=== PATIENT | female | born 1955 | race Caucasian/White ===

== ENCOUNTER 2022-01-23 12:47 | Emergency (ER) | payer BC, SELFPAY ==
--- NOTE | ~2022-01-23 | XR_ITS ---
XR knee RT 3V 01/23/2022 13:22 Indication: Right knee pain Procedure: 3 views right knee Comparison: No prior studies for comparison. Findings: Mild tricompartment osteoarthritis. No fracture, subluxation or dislocation. No significant joint effusion. No foreign bodies. Impression: 1: No acute fracture. Reviewed, dictated and finalized at location B. Impression: 1: No acute fracture.
[2022-01-23 12:54] VITALS: BP 122/93; PULSE 78; RESP 18; TEMP 36.7; O2SAT 100
--- NOTE | 2022-01-23 13:02 | ED.LOWEXIN ---
HPI - Extremity Injury (Lower) General Chief Complaint: Extremity Injury, Lower Stated Complaint: R knee pain Time Seen by Provider: 01/23/22 12:53 History of Present Illness HPI Narrative: 66-year-old female presents the emergency room for evaluation of right knee pain. Patient states that she was hiking in [place] when she missed stepped and twisted her right knee. States that she was seen at a local [place] ER and was told that she might have a meniscal injury. Imaging was not performed at that time. Patient states she has been wearing a Velcro knee splint since the onset of her injury that has provided her with minimal relief of pain. Patient states that she feels a clicking in her knee occasionally, and this prevents her from ambulating. Related Data Allergies Allergy/AdvReac Type Severity Reaction Status Date / Time meperidine [From Demerol] Allergy Unknown Verified 01/23/22 12:57 Review of Systems Review of Systems: CONSTITUTIONAL: Denies fever, chills, or sweats. EYES: Denies visual changes, redness, or discharge. ENT: Denies rhinorrhea, congestion, sore throat, or otalgia. CARDIOVASCULAR: Denies chest pain, palpitations, or edema. RESPIRATORY: Denies cough or dyspnea. GASTROINTESTINAL: Denies abdominal pain, nausea, vomiting, or diarrhea. GENITOURINARY: Denies dysuria or hematuria. SKIN: Denies rash or itching. MUSCULOSKELETAL: Reports right knee pain NEUROLOGIC: Denies headache, numbness, dizziness, or weakness. PSYCHIATRIC: Denies anxiety or depression. Exam Narrative: GENERAL: Well-appearing, well-nourished, no physical limitations, and in no acute distress. HEAD: Normocephalic, atraumatic. EYES: Conjunctivae normal, PERRLA and EOMI. CHEST: Clear to auscultation. No respiratory distress. No wheezes rales or rhonchi. No tenderness. HEART: Regular rate and rhythm. No murmur heard. Normal peripheral pulses. EXTREMITIES: Rt knee: Minimal soft tissue swelling to the lateral aspect of the patella. No patellar tracking. No clicking with range of motion. Patient no joint laxity. Negative anterior.. No pain with varus or valgus pressure. Nestor's test was negative. Neurovascular is intact distally. No obvious bony abnormality SKIN: Warm, dry, no rash. No noted wounds NEURO: No focal deficits. Alert and oriented x3. MAEW. CN's II-XI intact bilaterally, normal gait PSYCH: Cooperative. Normal mood and affect. Course Vital Signs Vital signs: Vital Signs Temperature 36.7 C 01/23/22 12:54 Pulse Rate 78 01/23/22 12:54 Respiratory Rate 18 01/23/22 12:54 Blood Pressure 122/93 H 01/23/22 12:54 Pulse Oximetry 100 01/23/22 12:54 Oxygen Delivery Room Air 01/23/22 12:54 Temperature 36.7 C 01/23/22 12:54 Pulse Rate 78 01/23/22 12:54 Respiratory Rate 18 01/23/22 12:54 Blood Pressure 122/93 H 01/23/22 12:54 Pulse Oximetry 100 01/23/22 12:54 Oxygen Delivery Room Air 01/23/22 12:54 Discharge Plan Discharge Clinical Impression: Acute internal derangement of knee Patient Disposition: Home, Self-Care Condition: Stable Instructions: Antibiotic Form, Knee Pain (ED) Additional Instructions: Continue taking Tylenol and ibuprofen as needed for discomfort. Follow-up with orthopedics for further evaluation. An MRI might be needed to further evaluate your knee pain. Follow-up/Referrals: PHYSICIAN NOT ON STAFF,NONSTAFF [Non-Staff] - Bro Lehman MD [Physician] - Time of Disposition: 14:12
== END 2022-01-23 14:33 | disposition home or self-care (01) ==
PROVIDERS: Emergency Provider Nurse Practitioner Family
DX: M23.91 Unspecified internal derangement of right knee (principal)
CPT/HCPCS: 73562; 99283